=== PATIENT | female | born 1995 | race African-American/Black ===

== ENCOUNTER → 2022-03-14 | Outpatient (CLI) | payer MEDICAID | LOC: M RAD 14:32 | PROVIDERS: ATTEND Physician Assistant | DX: M25.561 Pain in right knee (principal) ==

== ENCOUNTER → 2022-08-02 | Outpatient (CLI) | payer MEDICAID, SELFPAY ==
[2022-08-02 15:48] LABS: BASO % 0.3 % (0.0-1.0); EOS # 0.2 10^3/uL (0.0-0.5); EOS % 2.2 % (0.0-3.0); HEMATOCRIT 37.2 % (36.0-47.0); LYMPH # 2.6 10^3/uL (1.5-5.0); LYMPH % 26.9 % (24.0-44.0); MEAN CORPUSCULAR HEMOGLOBIN 30.3 pg (27.0-33.0); MEAN CORPUSCULAR HGB CONC 32.3 g/dl (32.0-36.5); MEAN CORPUSCULAR VOLUME 93.9 fl (80.0-96.0); MONO # 0.5 10^3/uL (0.0-0.8); MONO % 5.4 % (2.0-8.0); NEUTROPHILS # 6.3 10^3/uL (1.5-8.5); NEUTROPHILS % 64.8 % (36.0-66.0); PLATELET COUNT, AUTOMATED 216 10^3/uL (150-450); RED BLOOD COUNT 3.96 10^6/uL (4.00-5.40); WHITE BLOOD COUNT 9.7 10^3/uL (4.0-10.0)
[2022-08-02 17:10] LABS: GC DNA AMPLIFICATION NEGATIVE (NEGATIVE)
[2022-08-02 17:19] LABS: HEPATITIS C VIRUS ABY INDEX < 0.0 INDEX (<0.8); HIV 1&2 SCREEN CENTAUR NEGATIVE (NEGATIVE)
== END ==
LOC: M PLALAB 12:14
PROVIDERS: ATTEND Advanced Practice Midwife
DX: O34.211 Maternal care for low transverse scar from previous cesarean delivery (principal); Z3A.00 Weeks of gestation of pregnancy not specified

== ENCOUNTER → 2022-08-02 | Outpatient (CLI) | payer MEDICAID | LOC: M WHC 12:04 | PROVIDERS: ATTEND Advanced Practice Midwife | DX: O34.211 Maternal care for low transverse scar from previous cesarean delivery (principal); Z53.9 Procedure and treatment not carried out, unspecified reason ==

== ENCOUNTER → 2022-09-11 | Outpatient (CLI) | payer MEDICAID, OTHER | LOC: M WHC 13:09 | PROVIDERS: ATTEND Advanced Practice Midwife | DX: O34.211 Maternal care for low transverse scar from previous cesarean delivery (principal) ==

== ENCOUNTER → 2022-10-17 | Outpatient (CLI) | payer OTHER | LOC: M WHC 07:43 | PROVIDERS: ATTEND Advanced Practice Midwife | DX: Z34.82 Encounter for supervision of other normal pregnancy, second trimester (principal); Z36.2 Encounter for other antenatal screening follow-up; Z3A.24 24 weeks gestation of pregnancy ==

== ENCOUNTER → 2022-10-19 | Outpatient (REF) | payer OTHER | LOC: M LAB REF 18:40 | PROVIDERS: ATTEND Physician Assistant Medical | DX: R05.9 Cough, unspecified (principal) ==

== ENCOUNTER → 2022-11-20 | Outpatient (CLI) | payer OTHER | LOC: M WHC 11:08 | PROVIDERS: ATTEND Advanced Practice Midwife | DX: Z34.82 Encounter for supervision of other normal pregnancy, second trimester (principal); Z36.89 Encounter for other specified antenatal screening; Z3A.30 30 weeks gestation of pregnancy ==

== ENCOUNTER → 2022-11-20 | Outpatient (CLI) | payer OTHER ==
[2022-11-20 16:08] LABS: HEMATOCRIT 34.1 % (36.0-47.0); HEMOGLOBIN 10.7 g/dl (12.0-15.5); MEAN CORPUSCULAR HGB CONC 31.4 g/dl (32.0-36.5); MEAN CORPUSCULAR VOLUME 98.8 fl (80.0-96.0); PLATELET COUNT, AUTOMATED 234 10^3/uL (150-450); RED BLOOD COUNT 3.45 10^6/uL (4.00-5.40); WHITE BLOOD COUNT 16.1 10^3/uL (4.0-10.0)
== END ==
LOC: M PLALAB 11:57
PROVIDERS: ATTEND Advanced Practice Midwife
DX: Z34.82 Encounter for supervision of other normal pregnancy, second trimester (principal); Z36.89 Encounter for other specified antenatal screening; Z3A.00 Weeks of gestation of pregnancy not specified

== ENCOUNTER → 2022-12-12 | Outpatient (CLI) | payer OTHER | LOC: M LAB 06:35 | PROVIDERS: ATTEND Advanced Practice Midwife | DX: O99.810 Abnormal glucose complicating pregnancy (principal); Z3A.00 Weeks of gestation of pregnancy not specified ==

== ENCOUNTER → 2022-12-26 | Outpatient (REF) | payer MEDICAID | LOC: M PLALAB 15:53 | PROVIDERS: ATTEND Advanced Practice Midwife | DX: Z53.9 Procedure and treatment not carried out, unspecified reason (principal) ==

== ENCOUNTER → 2022-12-26 | Outpatient (CLI) | payer OTHER | LOC: M WHC 15:41 | PROVIDERS: ATTEND Advanced Practice Midwife | DX: Z34.83 Encounter for supervision of other normal pregnancy, third trimester (principal); Z36.2 Encounter for other antenatal screening follow-up; Z3A.34 34 weeks gestation of pregnancy ==

== ENCOUNTER → 2022-12-27 | Outpatient (CLI) | payer MEDICAID, OTHER | LOC: M PLALAB 11:22 | PROVIDERS: ATTEND Advanced Practice Midwife | DX: Z34.82 Encounter for supervision of other normal pregnancy, second trimester (principal) ==

== ENCOUNTER → 2023-01-10 | Outpatient (REF) | payer MEDICAID | LOC: M PLALAB 11:23 | PROVIDERS: ATTEND Obstetrics & Gynecology | DX: Z36.85 Encounter for antenatal screening for Streptococcus B (principal); Z3A.36 36 weeks gestation of pregnancy ==

== ENCOUNTER 2023-01-28 05:45 | Inpatient (IN) | payer OTHER, SELFPAY ==
[2023-01-28] VITALS (10 sets, daily range): BP systolic 99–134; BP diastolic 53–81
[~2023-01-28] VITALS: Ht 154.9 cm; Wt 78.7 kg
[2023-01-28] MEDS ORDERED: LACTATED RINGER'S 1000 ML IV STA (06:03)
[2023-01-28] MEDS ORDERED: ceFAZolin SOD 2 GM in IV 1 EA IV ONE (06:03)
[2023-01-28] MEDS ORDERED: LR 1,000 ML IV SCH ×2 (06:05→09:20)
[2023-01-28] MEDS ORDERED: BICITRA 30ML SOLN UDC PO ONE (06:05)
[2023-01-28 06:55] LABS: HEMATOCRIT 34.9 % (36.0-47.0); HEMOGLOBIN 11.2 g/dl (12.0-15.5); MEAN CORPUSCULAR HEMOGLOBIN 29.2 pg (27.0-33.0); MEAN CORPUSCULAR HGB CONC 32.1 g/dl (32.0-36.5); MEAN CORPUSCULAR VOLUME 90.9 fl (80.0-96.0); PLATELET COUNT, AUTOMATED 308 10^3/uL (150-450); RED BLOOD COUNT 3.84 10^6/uL (4.00-5.40); WHITE BLOOD COUNT 16.3 10^3/uL (4.0-10.0)
[2023-01-28] MEDS ORDERED: OXYTOCIN INJ 10UNITS/ML 1ML VIAL As Ordered ONE (07:27)
[2023-01-28] MEDS ORDERED: KETOROLAC 60MG 2ML VIAL As Ordered ONE (07:27)
[2023-01-28] MEDS ORDERED: ONDANSETRON 4MG 2ML VIAL As Ordered ONE (07:27)
[2023-01-28] MEDS ORDERED: fentaNYL 100 MCG/2 ML INJECTION As Ordered ONE ×2 (07:28→10:12)
[2023-01-28] MEDS ORDERED: MORPHINE PRES-FREE INJ 10 MG/10 ML VIAL As Ordered ONE (07:28)
[2023-01-28] MEDS ORDERED: OXYTOCIN 30UNITS IN 0.9% NaCl 500ML IV BAG As Ordered ONE ×2 (07:29→09:06)
[2023-01-28] MEDS ORDERED: METHYLERGONOVINE MALEATE 0.2MG/ML 1ML VIAL IM PRN (07:50)
[2023-01-28] MEDS ORDERED: RHOGAM 300MCG (1500IU) INJ IM SCH (07:50)
[2023-01-28] MEDS ORDERED: MOM 30ML SUSPENSION UDC PO PRN (07:50)
[2023-01-28] MEDS ORDERED: OXYTOCIN DRIP 30 UNITS in IV 1 EA IV SCH (07:50)
[2023-01-28] MEDS: LR 1,000 ML IV SCH ×2 (07:50→13:42)
[2023-01-28] MEDS ORDERED: ePHEDrine SULFATE 25 MG/5 ML(5MG/ML) SYRINGE As Ordered ONE (08:22)
[2023-01-28] MEDS: PRENATAL VITAMINS CHEWABLE TABLET PO SCH (09:00)
[2023-01-28] MEDS: FERROUS SULFATE 325MG TAB PO SCH (09:00)
[2023-01-28] MEDS: DOCUSATE SODIUM 100MG CAPSULE PO SCH ×2 (09:00→20:08)
[2023-01-28] MEDS ORDERED: **NOTE PATIENT COMMENT** MISC XX SCH (09:20)
[2023-01-28] MEDS ORDERED: ONDANSETRON 4MG 2ML VIAL IV PRN (09:20)
[2023-01-28] MEDS ORDERED: METOCLOPRAMIDE INJ 10MG/2ML VIAL IV PRN ×2 (09:20)
[2023-01-28] MEDS ORDERED: NALOXONE INJ 0.4MG/1ML VIAL IV PRN ×2 (09:20)
[2023-01-28] MEDS ORDERED: fentaNYL 100 MCG/2 ML INJECTION IV PRN (09:20)
[2023-01-28] MEDS ORDERED: oxyCODONE 5MG TAB PO PRN (09:20)
[2023-01-28] MEDS ORDERED: diphenhydrAMINE 50MG/ML VIAL IV PRN (09:20)
[2023-01-28] MEDS: SLF 3 ML SYR IV SCH ×2 (09:20→17:20)
[2023-01-28] MEDS: KETOROLAC 30 MG/ML 1ML VIAL IV SCH ×2 (14:17→20:08)
[2023-01-28] MEDS: PERCOCET 5MG/325MG TAB PO PRN ×2 (22:53→23:03)
[2023-01-29] MEDS: SLF 3 ML SYR IV SCH (01:52)
[2023-01-29] MEDS: KETOROLAC 30 MG/ML 1ML VIAL IV SCH (01:52)
[2023-01-29 02:00] VITALS: BP 114/55
[2023-01-29] MEDS: PERCOCET 5MG/325MG TAB PO PRN ×4 (04:49→21:53)
[2023-01-29 05:46] VITALS: BP 100/58
[2023-01-29] MEDS: SIMETHICONE 80MG CHEW TAB PO PRN ×3 (07:16→17:34)
[2023-01-29 07:52] LABS: HEMATOCRIT 27.6 % (36.0-47.0); MEAN CORPUSCULAR HEMOGLOBIN 29.5 pg (27.0-33.0); MEAN CORPUSCULAR HGB CONC 31.9 g/dl (32.0-36.5); MEAN CORPUSCULAR VOLUME 92.6 fl (80.0-96.0); PLATELET COUNT, AUTOMATED 227 10^3/uL (150-450); RED BLOOD COUNT 2.98 10^6/uL (4.00-5.40); WHITE BLOOD COUNT 16.4 10^3/uL (4.0-10.0)
[2023-01-29 07:56] LABS: HEMOGLOBIN 8.8 g/dl (12.0-15.5)
[2023-01-29] MEDS: PRENATAL VITAMINS CHEWABLE TABLET PO SCH (08:41)
[2023-01-29] MEDS: DOCUSATE SODIUM 100MG CAPSULE PO SCH ×2 (08:41→20:18)
[2023-01-29] MEDS: FERROUS SULFATE 325MG TAB PO SCH (08:41)
[2023-01-29 10:00] VITALS: BP 108/65
[2023-01-29] MEDS ORDERED: PERCOCET PO (10:30)
[2023-01-29] MEDS ORDERED: IBUP80TA PO (10:30)
[2023-01-29] MEDS ORDERED: COLA100C5 PO (10:30)
[2023-01-29] MEDS: IBUPROFEN 800 MG TAB PO SCH ×2 (10:44→18:02)
[2023-01-29 14:00] VITALS: BP 118/58
[2023-01-29 18:00] VITALS: BP 123/63
[2023-01-29 22:00] VITALS: BP 113/61
[2023-01-30] MEDS: IBUPROFEN 800 MG TAB PO SCH ×2 (01:35→11:15)
[2023-01-30 02:00] VITALS: BP 115/77
[2023-01-30 06:00] VITALS: BP 145/66
[2023-01-30] MEDS: PRENATAL VITAMINS CHEWABLE TABLET PO SCH (08:05)
[2023-01-30] MEDS: DOCUSATE SODIUM 100MG CAPSULE PO SCH (08:06)
[2023-01-30] MEDS: FERROUS SULFATE 325MG TAB PO SCH (08:06)
[2023-01-30] MEDS: PERCOCET 5MG/325MG TAB PO PRN (08:20)
[2023-01-30] MEDS ORDERED: MEASLES,MUMPS,RUBELLA VACCINE INJ (MMR-II) SC.IMMUN ONE (09:00)
== END 2023-01-30 12:44 | disposition home or self-care (01) | DRG 540 ==
LOC: M LDI 05:45 → M OBS 10:45
PROVIDERS: ADMIT Obstetrics & Gynecology; ATTEND Obstetrics & Gynecology
PROC: 0UB70ZZ Excision of Bilateral Fallopian Tubes, Open Approach (ICD-10-PCS; 2023-01-28)
PROC: 10D00Z1 Extraction of Products of Conception, Low, Open Approach (ICD-10-PCS; principal; 2023-01-28 07:30)
DX: O34.211 Maternal care for low transverse scar from previous cesarean delivery (principal); Z37.0 Single live birth; Z3A.39 39 weeks gestation of pregnancy; Z30.2 Encounter for sterilization

== ENCOUNTER → 2023-02-25 | Outpatient (CLI) | payer MEDICAID ==
[~2023-02-25] MED LIST: COLA100C5 PO; IBUP80TA PO; PERCOCET PO
[2023-02-25 16:35] LABS: HEPATITIS B SURFACE ANTIGEN NEGATIVE (NEGATIVE)
[2023-02-25 16:46] LABS: HIV 1&2 SCREEN NEGATIVE (NEGATIVE)
[2023-02-25 16:52] LABS: HEPATITIS B CORE ANTIBODY IGM NEGATIVE (NEGATIVE); HEPATITIS C VIRUS ABY INDEX 0.1 INDEX (<0.8)
[2023-02-25 17:06] LABS: GC DNA AMPLIFICATION NEGATIVE (NEGATIVE)
[2023-02-25 17:34] LABS: GC DNA AMPLIFICATION NEGATIVE (NEGATIVE)
== END ==
LOC: M PLALAB 13:59
PROVIDERS: ATTEND Nurse Practitioner Family
DX: Z11.3 Encounter for screening for infections with a predominantly sexual mode of transmission (principal)

== ENCOUNTER 2023-03-01 03:14 | Emergency (ER) | payer MEDICAID, OTHER ==
[~2023-03-01] VITALS: Ht 157.5 cm; Wt 73.2 kg
[2023-03-01 03:16] VITALS: BP 135/83
== END 2023-03-01 03:33 | disposition left against medical advice (07) ==
LOC: M ED 03:14
DX: Z53.21 Procedure and treatment not carried out due to patient leaving prior to being seen by health care provider (principal)

== ENCOUNTER → 2023-08-11 | Outpatient (REF) | payer OTHER | LOC: M LAB REF 16:12 | PROVIDERS: ATTEND Physician Assistant Medical | DX: R50.9 Fever, unspecified (principal) ==

== ENCOUNTER 2023-08-14 10:08 | Emergency (ER) | payer OTHER ==
[~2023-08-14] VITALS: Ht 154.9 cm; Wt 68.2 kg
[2023-08-14] MEDS ORDERED: AMOX500C PO (13:01)
[2023-08-14] MEDS: IBUPROFEN 600MG TAB PO ONE (13:11)
[2023-08-14 13:26] VITALS: BP 123/68; TEMP 102; O2SAT 99
== END 2023-08-14 13:28 | disposition home or self-care (01) ==
LOC: M ED 10:08
DX: J02.0 Streptococcal pharyngitis (principal); Z79.899 Other long term (current) drug therapy; Z79.1 Long term (current) use of non-steroidal anti-inflammatories (NSAID); Z79.891 Long term (current) use of opiate analgesic